=== PATIENT | female | born 1965 | race Caucasian/White ===

== ENCOUNTER → 2017-11-27 | Outpatient (CLI) | payer OTHER ==
--- NOTE | 2017-11-27 14:34 | RADIOLOGY REPORT (SQ) ---
EXAM DESCRIPTION: CT SINUSES FOR ENT COMPLETED DATE/TIME: 11/27/2017 2:10 pm REASON FOR STUDY: J32.9 CHRONIC SINUSITIS, UNSPECIFIED (SINUS FUSION PROTOCOL) J32.9 CHRONIC SINUSI TIS, UNSPECIFIED COMPARISON: None. TECHNIQUE: Noncontrast scanning through the paranasal sinuses using bone algorithm. Reconstructed MPR images reviewed. All images stored on PACS. Images acquired for image guided surgery. All CT scanners at this facility use dose modulation, iterative reconstruction, and/or weight based d osing when appropriate to reduce radiation dose to as low as reasonably achievable (ALARA). [facility]: Dose Right [facility]: CareDose [facility]: Dose Right [facility]: Teradose 4D [facility]: [employer] RADIATION DOSE: Total exam DLPi: 993.31 mGy FINDINGS: NASAL PASSAGES: Clear. No polyps or masses. OSTEOMEATAL UNITS AND NASOFRONTAL DUCTS: Patent. No agger nasi or Clif cells. MAXILLARY SINUSES: Well-pneumatized and clear. Maxillary sinus outlets are patent. ETHMOID SINUSES: Well-pneumatized and clear. SPHENOID SINUSES: Well-pneumatized and clear. No sphenoethmoid air cells or pneumatized pterygoid rec ess. No pneumatized dorsal sella. FRONTAL SINUSES: Well-pneumatized and clear. MASTOID AIR CELLS: Clear. ORBITS: Normal and symmetrical. NASAL SEPTUM: Deviation of the nasal septum to the right of the midline. Nasal bony spur. TEMPOROMANDIBULAR JOINTS: Normal. TURBINATES: No pneumatized turbinates. MUCOPERIOSTEAL THICKENING: No. MUCOCELE: No. OTHER: Partial pneumatization of the Laly tyrese. IMPRESSION: 1 No evidence of acute sinus disease. 2 Deviation the nasal septum to the right of the midline. Nasal bony spur. TECHNICAL DOCUMENTATION: JOB ID: [id number] Quality ID # [id number]: Final reports with documentation of one or more dose reduction techniques (e.g., Au tomated exposure control, adjustment of the mA and/or kV according to patient size, use of iterative reconstruction technique) 2010 [employer]- All Rights Reserved Reading location - IP/workstation name: [email or web address]
== END ==
LOC: RAD 13:48
PROVIDERS: ATTEND Otolaryngology
DX: J32.9 Chronic sinusitis, unspecified (principal); J34.2 Deviated nasal septum
CPT/HCPCS: 70486

== ENCOUNTER → 2018-01-18 | Outpatient (CLI) | payer OTHER | LOC: OD 10:42 | PROVIDERS: ATTEND Otolaryngology | DX: Z53.9 Procedure and treatment not carried out, unspecified reason (principal) ==

== ENCOUNTER 2018-01-26 08:07 | Day surgery (SDC) | payer MEDICARE, OTHER ==
--- NOTE | 2018-01-18 18:03 | EKG REPORT ---
SEVERITY:- BORDERLINE ECG - SINUS RHYTHM BORDERLINE T ABNORMALITIES, ANT-LAT LEADS : Confirmed by: Estela Ferrera 18-Jan-2018 18:01:59
[~2018-01-26 08:07] MED LIST: CEFAZOLIN 2 GM/D5W RTU 2 GM/50 ML RTUPB IV PRN; DEXAMETHASONE SOD PHOS INJ 10 MG/1 ML VIAL ONE; DEXMEDETOMIDINE INJ 80 MCG/20 ML VIAL IV ONE; FENTANYL CITRATE INJ/PF 100 MCG/2 ML AMPUL ONE; MIDAZOLAM 2 MG/2 ML INJ ONE; ONDANSETRON HCL INJ/PF 4 MG/2 ML SDV ONE; PROPOFOL INJ 200 MG/20 ML VIAL IV ONE
[2018-01-26] MEDS ORDERED: FAMOTIDINE INJ/PF 20 MG/2 ML SDV IV ONE (08:13)
[2018-01-26] MEDS ORDERED: MINERAL OIL (STERILE) 10 ML VIAL ONE (08:41)
[2018-01-26] MEDS ORDERED: BUPIVACAINE HCL 0.5%/EPI 1:200000 INJ 1.8 ML CARTRIDGE ONE (08:41)
[2018-01-26] MEDS ORDERED: OXYMETAZOLINE HCL 0.05% NASAL SPRAY 15 ML BOTTLE ONE (08:41)
[2018-01-26] MEDS ORDERED: SCOPOLAMINE HYDROBROMIDE 1.5 MG PATCH.TD72 TD PRN (08:49)
[2018-01-26] MEDS: BUPIVACAINE HCL 0.5%-EPI 1:200000 INJ/PF 30 ML VIAL ONE ×2 (10:38→11:54)
[2018-01-26] MEDS ORDERED: MIDAZOLAM 2 MG/2 ML INJ ONE (13:03)
[2018-01-26] MEDS ORDERED: OXYCODONE-ACETAMINOPHEN 5-325 MG TABLET ONE (16:06)
--- NOTE | 2018-02-05 15:35 | SURGICARE OPERATIVE REPORT E ---
[facility] NAME: MAGY DENSON AGE: 52Y DATE OF SURGERY: 01/26/2018 ROOM: PREOPERATIVE DIAGNOSIS: 1. Chronic rhinosinusitis. 2. Nasoseptal deviation, acquired. 3. Nasal deformities, acquired. 4. Chronic nasal dyspnea. 5. Inferior turbinate hypertrophy, bilateral. 6. Middle turbinate hypertrophy, bilateral. POSTOPERATIVE DIAGNOSIS: 1. Chronic rhinosinusitis. 2. Nasoseptal deviation, acquired. 3. Nasal deformities, acquired. 4. Chronic nasal dyspnea. 5. Inferior turbinate hypertrophy, bilateral. 6. Middle turbinate hypertrophy, bilateral. OPERATION: 1. Image guidance functional endoscopic sinus surgery with bilateral transnasal/intranasal frontal sinus balloon sinuoplasty with rigid nasal surgical endoscopy. 2. Septorhinoplasty with bony pyramid procedures and with cartilage procedures to include cartilage grafting. 3. Bilateral middle turbinate reduction. 4. Bilateral inferior turbinate reduction using a submucous resection technique. SURGEON: DAISY DE LA CRUZ D.O. ANESTHESIA: General endotracheal tube. ANESTHESIA STAFF: MACIEL Guerra. ESTIMATED BLOOD LOSS: 50 mL. FLUIDS: 2000 mL. COMPLICATIONS: None. DRAINS: None. COUNTS: Sponge count verified. Needle count verified. MATERIALS FORWARDED AND SPECIMENS: None. FINDINGS: 1. Right nasoseptal deviation involving bone and cartilage along with a large right maxillary crest spur. 2. No sinonasal polyp or polypoid disease or sinus discharge noted. 3. Nasal deformities involving bone and cartilage. 4. Bilateral nasal valve collapse. 5. Bilateral middle turbinate hypertrophy and inferior turbinate hypertrophy. INDICATIONS: This is a 52-year-old white female who has been seen, evaluated and followed in the [facility]. The patient was originally referred for and complained of a history of chronic sinus disease over the years, especially involving the frontal sinus distribution. The patient underwent CT sinus imaging as a part of this workup as well as clinic nasal fiberoptic endoscopy. The patient has also complained of a history of chronic nasal dyspnea that continues to become worse and more difficult over the years. The patient reports a history of nasal trauma. The patient denies history of previous sinus or nasal surgery. The patient has desire to undergo nasal surgery over the years to improve functional nasal airflow. The patient, after extensive discussion, desires to proceed with frontal sinus surgery in the form of balloon sinuplasty and functional septorhinoplasty with turbinate reductions. The procedures and all of their risks and complications all discussed in detail with the patient. She voiced an understanding of the described surgical plan, agreed to proceed, and consent was obtained. PROCEDURE: The patient was taken to the main operating room and placed on the operating room table in the supine position. Appropriate monitors were placed. Using mask and IV access, general anesthesia was induced. The patient was transorally intubated without difficulty. The patient was positioned for image guidance sinus surgery and nasal surgery. The patient underwent a nasal examination with injection of local anesthetic with epinephrine to establish a nasal block. The image guidance system was set up and adjusted appropriately before beginning the case. The patient was then prepped and draped in the usual fashion for nasal and sinus surgery. At this point, the patient underwent a hemitransfixed incision with elevation of the mucoperichondrial and periosteal flaps without difficulty. The bony cartilaginous junction was identified and divided with the most deviated portions of septal bone and cartilage removed. The flaps were further elevated to address and remove the large maxillary crest spur END OF DICTATION DICTATING PHYSICIAN: DAISY DE LA CRUZ D.O. [id number] PHY#: [id number] ID: [id number] JOB#: [id number] ACCT: [id number] cc:DAISY DE LA CRUZ D.O. >
--- NOTE | 2018-02-06 11:59 | SURGICARE OPERATIVE REPORT E ---
[facility] NAME: MAGY DENSON AGE: 52Y DATE OF SURGERY: 01/26/2018 ROOM: PREOPERATIVE DIAGNOSES: 1. CHRONIC RHINOSINUSITIS. 2. NASAL SEPTAL DEVIATION, ACQUIRED. 3. NASAL DEFORMITIES, ACQUIRED. 4. CHRONIC NASAL DYSPNEA. 5. BILATERAL INFERIOR TURBINATE HYPERTROPHY. 6. BILATERAL MIDDLE TURBINATE HYPERTROPHY. POSTOPERATIVE DIAGNOSES: 1. CHRONIC RHINOSINUSITIS. 2. NASAL SEPTAL DEVIATION, ACQUIRED. 3. NASAL DEFORMITIES, ACQUIRED. 4. CHRONIC NASAL DYSPNEA. 5. BILATERAL INFERIOR TURBINATE HYPERTROPHY. 6. BILATERAL MIDDLE TURBINATE HYPERTROPHY. OPERATION PERFORMED: 1. Image guidance functional endoscopic sinus surgery with bilateral frontal sinus balloon sinuplasty with use of bilateral transnasal rigid surgical endoscopy. 2. Septorhinoplasty involving the bony nasal pyramid procedure and nasal cartilage procedure with cartilage grafting. 3. Bilateral middle turbinate reductions. 4. Bilateral inferior turbinate reductions using a submucous resection technique. SURGEON: DAISY DE LA CRUZ D.O. ANESTHETIC: General endotracheal tube. ANESTHESIA STAFF: Beatrice Hinojosa CRNA ESTIMATED BLOOD LOSS: 50 mL. IV FLUIDS: 2000 mL. COMPLICATIONS: None. DRAINS: None. SPONGE COUNT: Verified. NEEDLE COUNT: Verified. MATERIALS FORWARDED SPECIMEN: None. FINDINGS: 1. Right nasal septal deviation involving bone and cartilage along with a large maxillary crest spur. 2. Bilateral middle turbinate hypertrophy and bilateral inferior turbinate hypertrophy, left greater than right. 3. There was no sinonasal polyposis or polyp disease noted or sinus discharge noted. 4. Nasal deformities involving both bone and cartilage. 5. Bilateral nasal valve collapse. INDICATIONS: This is a 52-year-old female who was seen, evaluated, and followed in the [place] [facility]. The patient had been referred for and she complained of longstanding history of chronic rhinosinusitis symptoms over the years affecting especially her frontal sinus forehead distribution. The patient also underwent CT sinus imaging and flexible fiberoptic evaluation. The patient also had the complaint of chronic nasal dyspnea over the years and has desired to undergo nasal surgery to improve functional nasal airflow. The patient also reports a history of nasal trauma over the years. There has been no previous history of sinus or nasal surgery. After extensive discussion with the patient, recommendation and plan was made to proceed with image guidance functional endoscopic sinus surgery to address the frontal sinuses with frontal sinus balloon sinuplasty to perform functional END OF DICTATION DICTATING PHYSICIAN: DAISY DE LA CRUZ D.O. [id number] PHY#: [id number] ID: [id number] JOB#: [id number] ACCT: [id number] cc:DAISY DE LA CRUZ D.O. >
== END 2018-01-26 16:57 | disposition home or self-care (01) ==
LOC: SC 08:07
PROVIDERS: ATTEND Otolaryngology
DX: J34.2 Deviated nasal septum (principal); R06.09 Other forms of dyspnea; M95.0 Acquired deformity of nose; J32.8 Other chronic sinusitis; J34.3 Hypertrophy of nasal turbinates; J01.91 Acute recurrent sinusitis, unspecified; E07.9 Disorder of thyroid, unspecified; Z79.899 Other long term (current) drug therapy; Z85.828 Personal history of other malignant neoplasm of skin
CPT/HCPCS: 93005; 36415; 86003 ×24; 82785; 93010; 30140; 30420; 31296; J2250; J3490 ×4; J3010; A9270; J2405; J2704; S0028; J1100; J0690; 160